=== PATIENT | male | born 1960 | race Caucasian/White ===

== ENCOUNTER → 2025-09-24 | Outpatient (CLI) | payer MEDICARE, OTHER ==
[~2025-09-24] MED LIST: IOHEXOL-350 75 ML VIAL IV ONE
--- NOTE | 2025-09-25 02:35 | HMCIMG ---
EXAM: CT Abdomen and Pelvis with IV contrast CLINICAL HISTORY: Unspecified abdominal pain; [id number] abdominal tenderness; right flank pain for 1 year. TECHNIQUE: Axial computed tomography images of the abdomen and pelvis following intravenous contrast administration. Sagittal and coronal reformatted images were generated. CONTRAST: Iohexol (Omnipaque 350), 75 mL IV. COMPARISON: None provided. FINDINGS: LUNG BASES: Pleural thickening with subpleural scarring in the bilateral lower lobes. No pleural effusion. LIVER: Fatty liver with diffuse parenchymal hypoattenuation. No focal hepatic lesion. GALLBLADDER AND BILE DUCTS: Gallbladder appears unremarkable. No radiopaque calculi. No intra- or extrahepatic biliary dilatation. PANCREAS: Normal in size and enhancement. No peripancreatic inflammation. SPLEEN: Normal size and attenuation. ADRENAL GLANDS: Normal morphology. KIDNEES, URETERS, AND BLADDER: Kidneys demonstrate preserved cortical thickness without hydronephrosis or hydroureter. No calculi. Urinary bladder unremarkable. STOMACH AND BOWEL: Stomach is unremarkable. Mild mural thickening involving the terminal ileum, ascending colon and hepatic flexure with prominent mesenteric vasculature and small volume enhancing mesenteric lymph nodes (largest 9 ??? 7 mm) with perinodal fat stranding. Distal colonic diverticulosis without evidence of diverticulitis or abscess. No bowel obstruction. Appendix appears normal. PERITONEUM: No free fluid or free intraperitoneal air. LYMPH NODES: Prominent mesenteric lymph nodes as above; no pathologic lymphadenopathy elsewhere. REPRODUCTIVE: Prostate enlarged, estimated volume 45 cc. VASCULATURE: Abdominal aorta and major branches enhance normally. No aneurysm. HERNIA: Umbilical hernia with a fascial defect measuring up to 2 cm containing fat; no bowel involvement or incarceration. BONES: No acute or aggressive osseous abnormality. IMPRESSION: * Mild mural thickening of the terminal ileum???ascending colon???hepatic flexure with prominent mesenteric vasculature and small reactive nodes, compatible with an inflammatory ileocolitis pattern. No CT evidence of acute appendicitis. * Distal colonic diverticulosis without diverticulitis. * Fatty liver. * Umbilical hernia containing fat with a fascial defect up to 2 cm. * Prostatomegaly. * Correlate clinically with the distribution of abdominal pain in the context of the above ileocolic inflammatory changes. /[place]
== END | disposition home or self-care (01) ==
LOC: RAH 10:42
PROVIDERS: ATTEND Internal Medicine Gastroenterology
DX: K76.0 Fatty (change of) liver, not elsewhere classified (principal); R10.9 Unspecified abdominal pain; R10.813 Right lower quadrant abdominal tenderness; K57.30 Diverticulosis of large intestine without perforation or abscess without bleeding; K42.9 Umbilical hernia without obstruction or gangrene; N40.0 Benign prostatic hyperplasia without lower urinary tract symptoms; J98.4 Other disorders of lung
CPT/HCPCS: 74177; Q9967